=== PATIENT | female | born 1950 | race Caucasian/White ===

== ENCOUNTER 2016-12-01 16:00 | Outpatient (RCR) | payer BC ==
[~2016-12-01 16:00] MED LIST: ALL-IN-ONE1 TAB PO; ATORVASTATIN; BENADRYL25 M2 PO; CAL-600600 MG PO; CLARITIN; CLARITIN 1010 MG/TAB PO; CRANBERRY1 CAP PO; EPA FISH OIL1000 MG PO; FLAX SEED OIL1000 MG PO; PERI-COLACE 501 TAB PO; SIMVASTATIN10 MG PO; VITAMIN D1000 IU PO; ZOCOR 20MG20 MG PO
== END 2016-12-07 09:14 | disposition home or self-care (01) ==
LOC: WSPT 16:00
DX: M51.16 Intervertebral disc disorders with radiculopathy, lumbar region (principal)

== ENCOUNTER → 2017-07-13 | Outpatient (CLI) | payer BC | LOC: COL.RAD 14:21 | DX: C25.1 Malignant neoplasm of body of pancreas (principal); M79.89 Other specified soft tissue disorders ==

== ENCOUNTER → 2017-07-28 | Outpatient (CLI) | payer BC | LOC: MC.RAD 07:47 | DX: Z12.31 Encounter for screening mammogram for malignant neoplasm of breast (principal) ==

== ENCOUNTER → 2018-08-15 | Outpatient (CLI) | payer MEDICARE, OTHER | LOC: MC.RAD 14:30 | DX: Z12.31 Encounter for screening mammogram for malignant neoplasm of breast (principal) ==

== ENCOUNTER 2019-02-05 01:51 | Emergency (ER) | payer MEDICARE, OTHER ==
[2005-01-07 11:58] VITALS: BP 128/76
[~2019-02-05] VITALS: Ht 162.6 cm; Wt 50.0 kg
[2019-02-05 02:00] VITALS: TEMP 98
[2019-02-05 02:36] LABS: MEAN CELL VOLUME 100 fl (80.0-100.0); MEAN CORPUSCULAR HGB CONC 32 g/dl (33.0-37.0); MEAN PLATELET VOLUME 9.7 fl (7.4-10.4); PLATELET COUNT 230 K/mm3 (130-400); RED BLOOD COUNT 2.99 M/mm3 (4.10-5.30)
[2019-02-05 02:39] LABS: HEMATOCRIT 29.9 % (37.0-47.0); HEMOGLOBIN 9.7 g/dl (12.5-16.0); MEAN CORPUSCULAR HEMOGLOBIN 32 pg (27.0-31.0)
[2019-02-05 02:48] LABS: ALBUMIN 3.1 gm/dL (3.5-5.0); BILIRUBIN,TOTAL 0.5 mg/dL (0.0-1.0); CALCIUM 8.7 mg/dL (8.4-10.2); CREATININE, serum 0.97 (0.52-1.25); POTASSIUM 3.6 mmol/L (3.4-5.0); TOTAL PROTEIN 6.1 gm/dL (6.4-8.2)
[2019-02-05 03:20] LABS: BAND 20 % (0-10); LYMPHOCYTE 14 % (20.0-51.0); METAMYELOCYTE 2 % (0-0); NEUTROPHILS 56 % (42.0-75.2); PLATELET ESTIMATE NORMAL (NORMAL)
[2019-02-05 03:21] LABS: ANISOCYTOSIS 1+
[2019-02-05 03:22] LABS: OVALOCYTES 1+
[2019-02-05 04:05] LABS: PH 7 (5-8); SQUAMOUS EPITHELIAL 0-2 /hpf; URINE APPEARANCE Clear; URINE BACTERIA None Seen /hpf; URINE BILIRUBIN Negative (NEGATIVE); URINE BLOOD Negative (NEGATIVE); URINE COLOR Colorless; URINE GLUCOSE Negative (NEGATIVE); URINE KETONE Trace (NEGATIVE); URINE LEUKOCYTE ESTERASE Negative (NEGATIVE); URINE NITRATE Negative (NEGATIVE); URINE PROTEIN(semi-quant) Negative (NEGATIVE); URINE RBC 0-2 /hpf; URINE UROBILINOGEN Negative (NEGATIVE)
[2019-02-05 04:25] LABS: COLLECTION METHOD CLEAN CATCH
[2019-02-05 07:15] VITALS: BP 155/97; PULSE 73
== END 2019-02-05 07:15 | disposition home or self-care (01) ==
LOC: COL.ER 01:51
PROVIDERS: Emergency Medicine
DX: G89.3 Neoplasm related pain (acute) (chronic) (principal); C78.00 Secondary malignant neoplasm of unspecified lung; C79.51 Secondary malignant neoplasm of bone; C25.9 Malignant neoplasm of pancreas, unspecified; E78.5 Hyperlipidemia, unspecified; Z88.0 Allergy status to penicillin
CPT/HCPCS: J1170; J2270; J2405; J7030; Q9967

== ENCOUNTER 2019-02-07 01:53 | Emergency (ER) | payer MEDICARE, OTHER ==
[2005-01-07 11:58] VITALS: BP 128/76
[~2019-02-07] VITALS: Ht 165.1 cm; Wt 45.0 kg
[2019-02-07 07:36] VITALS: TEMP 97.3
--- NOTE | 2019-02-07 08:30 | NUR ---
MABEL met with the patient and her to discuss hospice options. The pt and her met with Charles at the [facility] yesterday, 02/07 and discussed home with hospice. However, the pt and her would like to go to the [facility] then transition back home once pt's pain is controlled. MABEL informed Charles from [facility] and the pt's nurse. MABEL awaiting [facility] response. MABEL will continue to follow.
[2019-02-07 10:55] VITALS: BP 140/90; PULSE 85
== END 2019-02-07 10:55 | disposition home or self-care (01) ==
LOC: COL.ER 01:53
DX: C25.9 Malignant neoplasm of pancreas, unspecified (principal); C79.51 Secondary malignant neoplasm of bone
CPT/HCPCS: J1170; J2270; J2405; J2550; J7030